=== PATIENT | female | born 1955 | race Caucasian/White ===

== ENCOUNTER → 2016-08-29 | Outpatient (CLI) | payer BC ==
[~2016-08-29] MED LIST: HYDR-906 PO; IBUP-1542 PO
--- NOTE | 2016-08-29 17:52 | HKNOTE ---
DATE OF SERVICE: The patient comes in for recheck of her left knee surgical portals following arthroscopic surgery. The wounds are completely healed. The sutures were removed. The patient feels that her knee is muc h better than even when she saw me last and seems to be getting better every day. Steri-Strips were applied. She is being sent for a course of physical therapy. She is being put on disability for 6 weeks, and she will be seen again at the end that time for re-evaluation. Dictated By: SANGITA BERNARD/MICHAEL Conf#: [id number] DID#: [id number]
== END | disposition home or self-care (01) ==
LOC: HKI 15:28
DX: Z47.89 Encounter for other orthopedic aftercare (principal)
CPT/HCPCS: G0463